=== PATIENT | female | born 1990 | race Caucasian/White ===

== ENCOUNTER → 2016-10-19 | Outpatient (CLI) | payer OTHER ==
[~2016-10-19] MED LIST: AMOX500C2 PO; HYDR-3720 PO; OXYC-12 PO; PREN-115 PO; PREN1TAB71 PO
--- OUTSIDE RECORDS SUMMARY | 2016-10-19 14:02 | XMS REPORT | Continuity of Care Document ---
Author Author [facility] Organization [facility] Address Unknown Phone Unavailable Care Team Providers Care Packaging Line Attendant Name Role Phone SANDEEP SEO DO PP Insurance Providers Payer Name Policy Number Subscriber Name Relationship [facility] [id number] Devon Strong Lugii 01 Self / Same As Patient Advance Directives Directive Response Recorded Date Advance Directives N 02/14/13 8:16pm Organ Donor Y 02/14/13 8:16pm Problems No Known Problems or Medical conditions. Family History History Response Recorded Date/Time Hx Family Cancer Y SKIN - MATERNAL GPA 9:09am Social History History Response Recorded Date/Time Alcohol Use Rarely Uses 02/15/13 2:06am Recreational Drug Use N 02/15/13 2:06am Recent Foreign Travel N 02/15/13 2:06am Recent Infectious Disease Exposure N 2:06am Hospitalization with Isolation Denies 6:02pm Allergies, Adverse Reactions, Alerts Allergen Type Severity Reaction Last Updated No Known Drug Allergies 05/05/09 Medications Medication Dose Units Route Sig Qty Days Oxycodone Hcl/Acetaminophen (Percocet 5-325 Mg Tablet) 1 - 2 Tab PO Q4H PRN 30 Vit #108/Iron/Fa ( One Tablet) 1 Each PO DAILY Acetaminophen/Hydrocodone Bitart (Lortab 10-325 Mg) 1 Ea PO Q 4 - 6 HRS PRN Amoxicillin 500 Mg PO Q6HR Immunizations Name Given Type DTaP 02/16/13 A DTaP 02/16/13 A Response Recorded Date/Time Status not known Unknown Results Test Date Result Interp. Ref. Range Alanine Aminotransferase (ALT/SGPT) May 06, 2009 12:25am 26 U/L L 30-65 Albumin May 06, 2009 12:25am 2.9 G/ DL L 3.4-5.0 Alkaline Phosphatase May 06, 2009 12:25am 146 U/L H 50-136 Aspartate Amino Transf (AST/SGOT) May 06, 2009 12:25am 16 U/L N 15-37 BUN/Creatinine Ratio June 25, 2009 6:12am 7 - Band Neutrophils June 22, 2009 7:01pm 0 % - Basophils # (Auto) June 24, 2009 6:30am 0.0 10^3/uL N 0.0-0.1 Basophils % (Manual) June 22, 2009 7:01pm 0 % - Basophils (%) (Auto) June 24, 2009 6:30am 0 % N 0-10 Blood Urea Nitrogen June 25, 2009 6:12am 5 MG/DL L 7-18 Calcium Level June 25, 2009 6:12am 8.3 MG/DL L 8.5-10.1 Carbon Dioxide Level June 25, 2009 6:12am 23 MMOL/L N 21-32 Chloride Level June 25, 2009 6:12am 107 MMOL/L N 101-110 Creatinine June 25, 2009 6:12am 0.7 MG/DL N 0.6-1.3 Eosinophils # (Auto) June 24, 2009 6:30am 0.2 10^3/uL N 0.0-0.3 Eosinophils % (Manual) June 22, 2009 7:01pm 0 % - Eosinophils (%) (Auto) June 24, 2009 6:30am 2 % N 0-10 Glucose Level June 25, 2009 6:12am 77 MG/DL N 70-126 Hematocrit June 24, 2009 6:30am 31 % L 35-52 Hemoglobin June 24, 2009 6:30am 11.2 G/DL L 11.5-16.0 Lymphocytes # (Auto) June 24, 2009 6:30am 2.0 X 10^3 N 1.0-4.0 Lymphocytes % (Manual) June 22, 2009 7:01pm 2 % - Lymphocytes (%) (Auto) June 24, 2009 6:30am 17 % N 12-44 Mean Corpuscular Hemoglobin June 24, 2009 6:30am 31 PG N 25-34 Mean Corpuscular Hemoglobin Concent June 24, 2009 6: 30am 36 G/DL N 32-36 Mean Corpuscular Volume June 24, 2009 6:30am 88 FL N 80-99 Mean Platelet Volume June 24, 2009 6:30am 10.8 FL H 7.4-10.4 Monocytes # (Auto) June 24, 2009 6:30am 1.1 X 10^3 H 0.0-1.0 Monocytes % (Manual) June 22, 2009 7:01pm 5 % - Monocytes (%) (Auto) June 24, 2009 6:30am 9 % N 0-12 Neutrophils # (Auto) June 24, 2009 6:30am 8.3 X 10^3 H 1.8-7.8 Neutrophils % (Manual) June 22, 2009 7:01pm 93 % - Neutrophils (%) (Auto) June 24, 2009 6:30am 72 % N 42-75 Platelet Count June 24, 2009 6:30am 150 10^3/uL N 130-400 Potassium Level June 25, 2009 6:12am 3.7 MMOL/L N 3.6-5.0 Red Blood Count June 24, 2009 6:30am 3.56 10^6/uL L 4.35-5.85 Red Cell Distribution Width June 24, 2009 6:30am 13.3 % N 10.0-14.5 Sodium Level June 25, 2009 6:12am 140 MMOL/L N 135-145 Total Bilirubin May 06, 2009 12:25am 0.2 MG/DL N 0.0-1.0 Total Protein May 06, 2009 12:25am 6.6 G/DL N 6.4-8.2 Uric Acid May 06, 2009 12:25am 3.9 MG /DL N 2.6-7.2 Urine Amorphous Sediment June 22, 2009 5:40pm FEW RBAD PHOSPHATE H - Urine Bacteria February 09, 2013 6:15pm MODERATE /HPF H - Urine Bilirubin February 09, 2013 6:15pm NEGATIVE - Urine Casts February 09, 2013 6:15pm NONE / LPF - Urine Clarity February 09, 2013 6:15pm CLEAR - Urine Color February 09, 2013 6:15pm YELLOW - Urine Crystals February 09, 2013 6:15pm NONE /LPF - Urine Culture Indicated February 09, 2013 6:15pm YES - Urine Glucose (UA) February 09, 2013 6:15pm NEGATIVE - Urine Ketones February 09, 2013 6:15pm NEGATIVE - Urine Leukocyte Esterase February 09, 2013 6:15pm 1+ H - Urine Mucus February 09, 2013 6:15pm NEGATIVE /LPF - Urine Nitrite February 09, 2013 6:15pm NEGATIVE - Urine Protein February 09, 2013 6:15pm NEGATIVE - Urine RBC February 09, 2013 6:15pm 0-2 /HPF - Urine Specific [place] February 09, 2013 6:15pm 1.015 L - Urine Squamous Epithelial Cells February 09, 2013 6:15pm 10-25 /HPF H - Urine Total Protein 24 Hour February 01, 2013 12:45pm 251.7 MG/24H H 0-149 Urine Total Volume February 01, 2013 12:45pm 1325 ML - Urine Urobilinogen February 09, 2013 6:15pm NORMAL MG/DL - Urine WBC February 09, 2013 6:15pm 5-10 /HPF H - Urine pH February 09, 2013 6:15pm 6.5 - White Blood Count June 24, 2009 6:30am 11.6 10^3/uL H 4.3-11.0 Lab Scanned Report June 22, 2009 4:10pm LAB Reports [id number] - Estimat Glomerular Filtration Rate May 06, 2009 12:25am > 60 - Urine Total Protein mg/dL February 01, 2013 12:45pm 19.0 MG/DL H 6-12 Blood Morphology Comment June 22, 2009 7:01pm NORMAL - Urine RBC (Auto) February 09, 2013 6:15pm NEGATIVE - Procedures Procedure Code Date VACUUM EXTRACT DEL NEC 72.79 06/23/09 REPAIR OB LACERATION NEC 75.69 06/23/09 Urine Culture 02/09/13 Encounters Encounter Location Date/Time Discharged Inpatient [facility] 11:21pm Departed Emergency Room [facility] 12 :00am
--- NOTE | 2016-10-21 08:44 | ECHOCARDIOGRAPHY REPORT ---
PROCEDURE PHYSICIAN: SHANDRA REN DATE OF PROCEDURE: 10/19/2016 TWO DIMENSIONAL ECHOCARDIOGRAM REPORT PRIMARY PHYSICIAN: OTHER PHYSICIAN: REFERRING PHYSICIAN: Dr. Haque ORDERING PHYSICIAN: INDICATION FOR THE PROCEDURE: Chest pain. MEASUREMENTS DERIVED VALUES LV DIAMETER (LAX) NORMALS NORMALS Diastolic 3.3 (3.6-5.2) Eject. Fract. 60% (60%+/-6%) Systolic (2.3-3.9) Diastolic Vol. % Shortening (0.22-0.42) Systolic Vol. Aortic Root IVS THICKNESS Diastolic 0.9 (0.6-1.1) LVPW THICKNESS Diastolic 0.9 (0.6-1.1) LA DIAMETER Systolic 2.4 (2.1-3.7) FINDINGS: 1. Technical quality is good. 2. The left ventricle is normal in size with normal contractility. Systolic function appeared to be normal. Estimated ejection fraction 60%. 3. The left atrium is normal in size. No clot or thrombus were seen within the left atrium. 4. The right atrium and right ventricle are normal in size. No clot or thrombus were seen within the right side. 5. Mitral valve is normal in morphology with normal excursion and coaptation. No mitral valve prolapse. No mitral valve stenosis. Trace mitral regurgitation noted by color Doppler flow. 6. Aortic valve is trileaflet with normal opening and closing pattern. No significant aortic stenosis or regurgitation was seen. 7. Tricuspid valve is normal in morphology. Insufficient Doppler signal to evaluate pulmonary artery pressure. No significant regurgitation was noted. 8. Pulmonic valve is functioning normally. 9. No pericardial effusion. IN CONCLUSION: 1. Normal left ventricular size and systolic function. Estimated ejection fraction 60%. 2. Insufficient Doppler signal to evaluate pulmonary artery pressure. 3. Overall, normal echocardiogram. Job ID: [id number] Dictated Date: 10/20/2016 14:47:22 [employer] Date: 10/21/2016 08:41:21 / mateo
== END ==
LOC: CARD 13:58
PROVIDERS: ATTEND Family Medicine
DX: R07.2 Precordial pain (principal); R00.0 Tachycardia, unspecified
CPT/HCPCS: 93005; 93306

== ENCOUNTER → 2016-10-31 | Outpatient (CLI) | payer OTHER ==
--- NOTE | 2016-10-31 20:24 | Diagnostic Imaging Report ---
Exam: Left breast ultrasound. Indication: Left breast pain. Findings: Unremarkable breast parenchyma seen with no focal lesion. The palpable lump is in the medial aspect at the 8:00 o'clock zone with no abnormality seen. The medial aspect of the left breast was completely scanned with no underlying abnormality seen. Impression: Negative study. Clinical followup recommended. BI-RADS 1. ACR BI-RADS Category 1: Negative. Result letter will be mailed to the patient. Note: At least 10% of breast cancer is not imaged by mammography. Dictated by: Dictated on workstation # [id number]
== END ==
LOC: RAD 09:54
PROVIDERS: ATTEND Nurse Practitioner
DX: N64.4 Mastodynia (principal)
CPT/HCPCS: 76642

== ENCOUNTER → 2017-12-21 | Outpatient (CLI) | payer OTHER ==
--- NOTE | 2017-12-21 11:27 | Diagnostic Imaging Report ---
INDICATION: Low back pain. AP and lateral views of the lumbar spine are obtained. FINDINGS: Lumbar spinal curvature and alignment are within normal limits. Vertebral body heights and disc spaces are maintained. There is no evidence of fracture, subluxation or sclerotic focus. IMPRESSION: Unremarkable lumbar spine. Dictated by: Dictated on workstation # [id number]
--- NOTE | 2017-12-21 11:30 | Diagnostic Imaging Report ---
INDICATION: Low back pain for 2 days FINDINGS: AP and both oblique views of the sacroiliac joints are obtained. No acute fracture or dislocation is identified. No abnormal lytic or sclerotic focus is seen, and there is no radiopaque foreign body. IMPRESSION: No acute abnormality. Dictated by: Dictated on workstation # [id number]
== END ==
LOC: RAD 10:51
PROVIDERS: ATTEND Nurse Practitioner Family
DX: M54.5 Low back pain (principal)
CPT/HCPCS: 72100; 72202

== ENCOUNTER → 2018-11-13 | Outpatient (CLI) | payer OTHER | LOC: CARD 11:30 | PROVIDERS: ATTEND Nurse Practitioner Family | DX: R00.0 Tachycardia, unspecified (principal) | CPT/HCPCS: 93005 ==

== ENCOUNTER → 2018-11-22 | Outpatient (CLI) | payer OTHER | LOC: CARD 08:49 | PROVIDERS: ATTEND Internal Medicine Cardiovascular Disease | DX: R00.2 Palpitations (principal); R07.9 Chest pain, unspecified | CPT/HCPCS: 93225; 93226 ==

== ENCOUNTER → 2018-12-24 | Outpatient (CLI) | payer OTHER | LOC: CARD 11:15 | PROVIDERS: ATTEND Nurse Practitioner Family | DX: R07.89 Other chest pain (principal); R00.2 Palpitations | CPT/HCPCS: 93017 ==

== ENCOUNTER → 2021-10-14 | Outpatient (CLI) | payer OTHER | LOC: LABNPT 06:39 | PROVIDERS: ATTEND Family Medicine | DX: U07.1 COVID-19 (principal) | CPT/HCPCS: 87635 ==

== ENCOUNTER 2022-01-27 16:21 | Outpatient (RCR) | payer OTHER | END 2022-01-28 | disposition home or self-care (01) | PROVIDERS: ATTEND Nurse Practitioner Family | DX: M54.42 Lumbago with sciatica, left side (principal); I10 Essential (primary) hypertension ==

== ENCOUNTER 2022-02-10 09:30 | Outpatient (RCR) | payer OTHER | END 2022-02-28 | disposition home or self-care (01) | PROVIDERS: ATTEND Nurse Practitioner Family | DX: M54.42 Lumbago with sciatica, left side (principal); I10 Essential (primary) hypertension ==

== ENCOUNTER → 2022-05-19 | Outpatient (CLI) | payer OTHER ==
--- NOTE | 2022-05-19 18:09 | Diagnostic Imaging Report ---
INDICATION: Chronic back pain and stiffness. It is compared with radiographs 12/21/2017. FINDINGS: The lumbar statures normal. Their alignment anatomic. There is mild degenerative disc space narrowing at L5-S1 greater than L4-L5 which showed mild interval progression. No fracture. No acute endplate irregularity. IMPRESSION: Very mild lower lumbar degenerative changes showed slight progression with normal alignment and no acute or suspicious abnormality identified. Dictated by: Dictated on workstation # [id number]
== END ==
LOC: RAD 12:11
PROVIDERS: ATTEND Family Medicine
DX: M47.816 Spondylosis without myelopathy or radiculopathy, lumbar region (principal)
CPT/HCPCS: 72100

== ENCOUNTER → 2023-09-01 | Outpatient (CLI) | payer OTHER ==
--- NOTE | 2023-09-01 12:07 | Diagnostic Imaging Report ---
HISTORY: Back pain after injury. TECHNIQUE: Two views of the thoracic spine. COMPARISON: None. FINDINGS: There is slight left convex curvature at the thoracolumbar junction which may be positional. There is no spondylolisthesis. Vertebral body heights and disc heights are preserved and no acute fracture is seen. IMPRESSION: No acute osseous abnormality is seen in the thoracic spine. Dictated by: Dictated on workstation # [id number]
--- NOTE | 2023-09-01 12:08 | Diagnostic Imaging Report ---
HISTORY: Low back pain. COMPARISON: 05/19/2022. TECHNIQUE: Three views of the lumbar spine. FINDINGS: Alignment of the lumbar spine appears normal with no spondylolisthesis. Vertebral body heights are preserved. There is mild disc height loss at L4-L5 and L5-S1. No acute fracture is seen. The sacroiliac joints are patent. IMPRESSION: Mild disc height loss at L4-L5 and L5-S1 with no acute osseous abnormality seen in the lumbar spine. Dictated by: Dictated on workstation # [id number]
== END ==
LOC: RAD 11:36
PROVIDERS: ATTEND Registered Nurse Critical Care Medicine
DX: M51.16 Intervertebral disc disorders with radiculopathy, lumbar region (principal); M51.17 Intervertebral disc disorders with radiculopathy, lumbosacral region; M77.42 Metatarsalgia, left foot; M79.672 Pain in left foot
CPT/HCPCS: 72070; 72100